=== PATIENT | male | born 1940 | race Caucasian/White ===

== ENCOUNTER 2018-11-11 09:10 | Inpatient (IN) | payer MEDICARE ==
[~2018-11-11] VITALS: Ht 175.3 cm; Wt 68.0 kg
--- OUTSIDE RECORDS SUMMARY | 2018-11-11 09:12 | XMS REPORT | Clinical Summary ---
Author Author ELIANE [facility] Address Unknown Phone Unavailable Care Team Providers Care Needle Punch Operator Name Role Phone Nicolas Baxter PCP Allergies Comments Active Allergy Reactions Severity Noted Date Iodine And Iodide Anaphylaxis High 02/24/2017 Containing Products Medications End Date Status Medication Sig Dispensed Refills Start Date Active finasteride (PROSCAR) 5 Take 5 mg by 0 mg tablet mouth daily. Active tamsulosin (FLOMAX) 0.4 Take 0.4 mg 0 mg Cp24 24 hr capsule by mouth daily. Active glipiZIDE (GLUCOTROL XL) Take 5 mg by 0 5 MG 24 hr tablet mouth daily. Active metFORMIN (GLUCOPHAGE) Take 500 mg 0 500 MG tablet by mouth daily with breakfast. Active losartan (COZAAR) 25 MG Take 25 mg by 0 tablet mouth daily. Active pantoprazole (PROTONIX) Take 40 mg by 0 40 MG tablet mouth daily. Active levocetirizine (XYZAL) 5 Take 5 mg by 0 MG tablet mouth every evening. Active aspirin 81 MG EC tablet Take 81 mg by 0 mouth daily. Active KRILL OIL ORAL Take by 0 mouth. Active TURMERIC ROOT EXTRACT Take by 0 ORAL mouth. Active VITB6/MAG Take by 0 CIT,OX/POTASSIUM CIT mouth. (THERALITH XR ORAL) Active ticagrelor (BRILINTA) 90 Take 1 tablet 180 tablet 0 mg Tab tablet (90 mg total) 7 by mouth 2 (two) times daily. 02/27/2018 rosuvastatin (CRESTOR) 20 Take 1 tablet 90 tablet 0 MG tablet (20 mg total) 7 by mouth daily. 02/26/2018 metoprolol (LOPRESSOR) 25 Take 1 tablet 69 tablet 0 MG tablet (25 mg total) 7 by mouth 2 (two) times daily. 02/26/2018 nitroglycerin (NITROSTAT) Put 1 pill 25 tablet 0 0.4 MG SL tablet under tongue 7 every 5min as needed for chest pain. Active Problems Problem Noted Date Type 2 diabetes mellitus 02/25/2017 Hyperlipidemia LDL goal <100 02/25/2017 Essential hypertension 02/25/2017 NSTEMI (non-ST elevated myocardial infarction) 02/24/2017 Social History Date Tobacco Use Types Packs/Day Years Used Never Smoker Smokeless Tobacco: Never Used Alcohol Use Drinks/Week oz/Week Comments No Sex Assigned at Date Recorded Not on file Industry Job Start Date Occupation Not on file Not on file Not on file Travel End Travel History Travel Start No recent travel history available. Last Filed Vital Signs Not on file Plan of Treatment Not on file Implants Device Identifier Shelf Expiration Date Model / Serial / Lot Implanted Type Area Manufactur er 11/24/2017 [id number] / [id number] / Device Clsr Angio-Seal Vip 6fr Cardiovasc N/A: Coronary [facility] YOBANI [id number] - [id number] MED:CARDIA Implanted: Qty: 1 on 02/25/2017 by Jem Medina MD [id number] 12/08/2017 [id number] / / [id number] Synergy Stents-Cor N/A: Coronary [place] Implanted: Qty: 1 on 02/25/2017 by Jem Felix MD Results Not on fileafter 11/10/2017 Insurance Payer Benefit Subscriber ID Type Phone Address Plan / Group HUMANA - MEDICARE MGD HUMANA xxxxxxxxx [facility] MEDICARE Contracted ADV Kevon Goldsmith Claude Personal/F Self 1940 [phone] ([address]) [place] [address] Advance Directives For more information, please contact: [facility] [address] [place] [address] Date Inactivated Comments Code Status Date Activated 02/26/2017 2:00 PM Full Code 02/24/2017 9:48 PM This code status was determined by: Patient
--- OUTSIDE RECORDS SUMMARY | 2018-11-11 09:12 | XMS REPORT | Clinical Summary ---
Author Author [facility] Address Unknown Phone Unavailable Care Team Providers Care Canvas Goods Maker Name Role Phone Asked, No Pcp PCP Unavailable Allergies Not on File Medications Not on file Active Problems Not on file Encounters Care Team Description Date Type Specialty Jorje Siddiqui MD Kidney stone 08/31/2018 Hospital Radiology Encounter Jorje Siddiqui MD Kidney stone (Primary Dx) 08/31/2018 Transcribe Access Orders after 11/10/2017 Social History Date Tobacco Use Types Packs/Day Years Used Never Assessed Sex Assigned at Date Recorded Not on file Industry Job Start Date Occupation Not on file Not on file Not on file Travel End Travel History Travel Start No recent travel history available. Last Filed Vital Signs Not on file Plan of Treatment Health Maintenance Due Date Last Done Comments SHINGLES VACCINES (#1) 1989 65+ PNEUMOCOCCAL VACCINE 2004 (1 of 2 - PCV13) INFLUENZA VACCINE 11/25/2018 Procedures Comments Procedure Name Priority Date/Time Associated Diagnosis XR KUB KIDNEY URETER Routine 08/31/2018 Kidney stone BLADDER 12:14 PM CDT after 11/10/2017 Results * XR Kub Kidney Ureter Bladder (08/31/2018 12:14 PM CDT) Specimen Narrative Performed At XR KUB KIDNEY URETER [facility] CLINICAL INDICATION:N20.0 Calculus of kidney, n20.0 COMPARISON:08/31/2017 IMPRESSION: There are advanced bilateral renal calculi with at least 10 calculi in each kidney that on the right measure to 6 mm, on the left 9 mm. Findings are similar in size and distribution to prior exam apart from a conglomeration of now 3 less than 5 mm calculi in the interpolar right kidney with a discrete 9 mm calculus in this region on prior. No ureteral calculi are identified. Multiple fluid is are noted through the pelvis with scattered atherosclerotic vascular calcifications. There is mild spondylosis at L4-5. 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 Bowel gas pattern is unremarkable. *[facility]-[id number] Procedure Note Hm Interface, Radiology Results Incoming - 08/31/2018 12:33 PM CDT XR KUB KIDNEY URETER BLADDER CLINICAL INDICATION: N20.0 Calculus of kidney, n20.0 COMPARISON: 08/31/2017 IMPRESSION: There are advanced bilateral renal calculi with at least 10 calculi in each kidney that on the right measure to 6 mm, on the left 9 mm. Findings are similar in size and distribution to prior exam apart from a conglomeration of now 3 less than 5 mm calculi in the interpolar right kidney with a discrete 9 mm calculus in this region on prior. No ureteral calculi are identified. Multiple fluid is are noted through the pelvis with scattered atherosclerotic vascular calcifications. There is mild spondylosis at L4-5. 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 Bowel gas pattern is unremarkable. *[facility]-[id number] Performing Organization Address City/State/Zipcode Phone Number [facility] [address] [place] [address] after 11/10/2017 Insurance Type Payer Benefit Subscriber ID Effective Phone Address Plan / Dates Group PPO HUMANA MEDICARE HUMANA xxxxxxxxx 2017-P MEDICARE resent PPO/PFFS/E [facility] Advance Directives Patient has advance care planning documents on file. For more information, beverley e contact: Alexander Vincent [address] [place] [address]
--- OUTSIDE RECORDS SUMMARY | 2018-11-11 09:13 | XMS REPORT ---
Author Author [facility] Address Unknown Phone Unavailable Care Team Providers Care Pipe Layer Name Role Phone ROBINJADENJADE Unavailable Unavailable Simón KIMBALL Unavailable Unavailable Payers Payer Name Policy Type Policy Number Effective Date Expiration Date Problems This patient has no known problems. Allergies, Adverse Reactions, Alerts This patient has no known allergies or adverse reactions. Medications This patient has no known medications. Results Test Description Test Time Test Comments Text Results Atomic Results Result Comments - MRI L-SPINE W/O CONT 2018-10-29 16:07:00 Patient Name: KANA FLANAGAN Unit No: [id number] EXAMS: CPT CODE: [id number] MRI L-SPINE W/O CONT 19904 TECHNIQUE: Multiplanar, multisequence MRI examination performed of the lumbar spine without intravenous contrast material. COMPARISON: None available. FINDINGS: Five lumbar type vertebra are assumed. Alignment: 1 retrolisthesis of L3-L4. Bone Lesion: No suspicious osseous lesion. Fracture: None present. Paraspinal Soft Tissues: Unremarkable. Conus Medullaris: Termination at L1 level. Morphology is normal. L1/2: Disc desiccation and minimal bulge. No significant foraminal or central canal stenosis. L2/3: Disc desiccation with small left asymmetric bulge. Bilateral facet hypertrophy contributes to mild central canal stenosis. No foraminal narrowing. L3/4: Grade 1 retrolisthesis. Right asymmetric disc bulge. Mild bilateral facet hypertrophy. Moderate central canal stenosis is noted as well as right lateral recess stenosis. There is mild bilateral foraminal narrowing. L4/5: Broad disc bulge is demonstrated as well as bilateral facet hypertrophy and ligamentum flavum thickening. There is moderate central canal stenosis as well as severe right lateral recess stenosis. Moderate left, severe right foraminal stenosis. L5/S1: Diffuse disc bulge. Bilateral facet hypertrophy and ligament of flavum thickening. There is marked right lateral recess stenosis as well as fgvt-df-ccomsyku central canal stenosis. Mild left, moderate right foraminal stenosis. IMPRESSION: Multilevel lumbar spondylosis with up to moderate central canal stenosis at L3-L4 and L4-L5. at 1607 Reported and signed by: Chun Liang M.D. CC: Technologist: DAGMAR MILTON. RT(R) Transcribed D/ (1116) Marianela [facility] NAME: KANA FLANAGAN [address] [place] [address] PHYS: WIMDA.Aliyah - Fabiola Mohamud Bossman : 1940 AGE: 78 SEX: M [place] [id number] LOC: Y.MRI PHONE #: [phone] EXAM DATE: 10/29/2018 STATUS: REG CLI FAX #: [phone] RAD #: D/C DT PAGE 1 Signed Report Patient Name: KANA FLANAGAN Unit No: [id number] EXAMS: CPT CODE: [id number] MRI L-SPINE W/O CONT 93131 <Continued> Orig Print D/T: S: 10/29/2018 (5985) [facility] NAME: KANA FLANAGAN [address] [place] [address] PHYS: WIMDA.Aliyah - WestbrookFabiola mosquera Bossman : 1940 AGE: 78 SEX: M [place] [id number] LOC: Y.MRI PHONE #: [phone] EXAM DATE: 10/29/2018 STATUS: REG CLI FAX #: [phone] RAD #: D/C DT PAGE 2 Signed Report - MRI C-SPINE W/O CONT 2018-10-29 15:41:00 Patient Name: KANA FLANAGAN Unit No: [id number] EXAMS: CPT CODE: [id number] MRI C-SPINE W/O CONT 02523 TECHNIQUE: Multiplanar, multisequence MRI examination performed of the cervical spine without intravenous contrast material. COMPARISON: None available. FINDINGS: Alignment: Grade 1 spondylolisthesis of C3-C4 and C4-C5. There is also grade 1 spondylolisthesis of C7-T1 Bone Lesion / Fracture: None present. Cervical Spinal Cord: No cord expansion or abnormal signal. 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 C2/3: Disc degeneration with small disc bulge. Severe left facet hypertrophy contributes to mild left foraminal narrowing. No significant right foraminal stenosis. There is mild central canal stenosis. C3/4: Grade 1 spondylolisthesis. Broad disc bulge osteophyte complex is present as well as marked bilateral uncovertebral hypertrophy and right-sided facet degeneration. There is severe central canal stenosis as well as moderate to severe left, severe right foraminal stenosis. C4/5: Grade 1 spondylolisthesis. Broad disc bulge osteophyte complex is present as well as severe bilateral uncovertebral hypertrophy and right- sided facet degeneration. There is severe central canal stenosis as well as severe bilateral foraminal narrowing. C5/6: Disc degeneration with endplate marrow changes and broad disc bulge osteophyte complex. Marked bilateral uncovertebral hypertrophy and right-sided facet degeneration. There is severe central canal stenosis as well as severe bilateral foraminal narrowing. C6/7: Marked disc degeneration is present with endplate marrow changes and broad disc bulge osteophyte complex. Left greater than right and uncovertebral hypertrophy is noted as well as mild facet degeneration. There is severe left, moderate right foraminal stenosis as well as severe central canal stenosis. C7/T1: Grade 1 spondylolisthesis. Right asymmetric disc bulge. Marked bilateral facet hypertrophy is present. There is mild central canal stenosis as well as mild bilateral foraminal narrowing. IMPRESSI ON: 1. Advanced multilevel cervical spondylosis with severe central canal stenosis from C3-C4 to C6-C7. 2. Fluid and gas- filled sac anterior to the T1 vertebral body which is most likely a Zenker's diverticulum. Consider confirmation with fluoroscopy if clinically indicated. [facility] NAME: KANA FLANAGAN [address] [facility] PHYS: АНДРЕЙA.Aliyah - Fabiola Mohamud : 1940 AGE: 78 SEX: M [place] [id number] ACCT NO: Y [id number] LOC: Y.MRI PHONE #: [phone] EXAM DATE: 10/29/2018 STATUS: REG CLI FAX #: [phone] RAD #: D/C DT PAGE 1 Signed Report (CONTINUED) Patient Name: KANA FLANAGAN Unit No: [id number] EXAMS: CPT CODE: [id number] MRI C-SPINE W/O CONT 54660 <Continued> at 1541 Reported and signed by: Chun Liang M.D. CC: Technologist: DAGMAR MILTON. RT(R) Transcribed D/ (1053) Marianela [facility] NAME: KANA FLANAGAN Aliyah [facility] PHYS: WIMDA.Aliyah - Fabiola Mohamud : 1940 AGE: 78 SEX: [place] [address] LOC: Y.MRI PHONE #: [phone] EXAM DATE: 10/29/2018 STATUS: REG CLI FAX #: RAD #: D/C DT PAGE 2 Signed Report Patient Name: KANA FLANAGAN Unit No: [id number] EXAMS: CPT CODE: [id number] MRI C-SPINE W/O CONT 09795 <Continued> Orig Print D/T: S: 10/29/2018 (8310) [facility] NAME: KANA FLANAGAN [address] [place] [address] PHYS: WIMDA.Aliyah - Fabiola Mohamud : 1940 AGE: 78 SEX: M [place] [id number] LOC: Y.MRI PHONE #: [phone] EXAM DATE: 10/29/2018 STATUS: REG CLI FAX #: [phone] RAD #: D/C DT PAGE 3 Signed Report BLAKE CARLOS FLUORO 2017-04-03 08:47:00 Reason for Exam:->I72.8 Addendum BeginsREPORT STATUS:A Addendum:Ultrasound was used to assess the right common femoral artery which was patent and access the right common femoral artery using a 21-gauge micropuncture needle. An image documenting the needle tip within the artery was saved to PACS. Signed: Chun Weiss Verified Date/Time: 04/03/2017 08:47:42 Reading Location: [facility] Radiology Reading RoomAddendum EndsFINAL REPORT Right lower extremity angiogram History: Concern for right femoral pseudoaneurysm status post cardiac catheterization. Modality: Fluoroscopy. Sedation: None Web Merchant: Loree. Orthotic/Prosthetic Practitioner: Anthony. Approach: Right inguinal region. Estimated blood loss: < 10 cc. Specimen: None. Fluoroscopy Time: 0.1 min.Reference Air Kerma (Ka, r): 150.9 mGy. Technique: Informed written consent was obtained. Discussion of risks, benefits, and alternatives were made with the patient. The patient expressed understanding and agreed to proceed. All elements maximal sterile barrier technique was utilized for this procedure, including utilization of sterile scrub solution for skin prep, a la rge sterile sheet to cover the areas of the patient that were not prepped, and hand hygiene, mask, head covering, and sterile gown for performing radiologist and scrub technologist. Ultrasound evaluation was performed demonstrating a large hematoma but no pseudoaneurysm could be identified.. Ultrasound guidance was used to percutaneously access right common femoral artery using a 21-gauge micropuncture needle, 0.018 inches wire, and micropuncture sheath. Contrast was injected through the micropuncture 4 Japanese sheath for a DSA run to evaluate the right femoral artery. No pseudoaneurysm or contrast extravasation from the artery was identified. IMPRESSION: Right inguinal hematoma without evidence of pseudoaneurysm. Signed: Chun Weiss MDRjanisort Verified Date/Time: 03/10/2017 08:17:34 Reading Location: [facility] P048 Angio Body Reading Room ELET AGGREGATION: FUNCTION SCREEN 2017-02-27 14:11:00 WEAK ADP RESULT(BEAKER) (test ondz=9571) 31 % 60-91 PLATELET FUNCTION SCREEN INTERP (BEAKER) (test wfxr=5403) 0-39% indicates marked platelet dysfunction [id number] (BEAKER) (test date=6094) Martínez De Leon M.D. (electonic signature) PLATELET COUNT AGG (BEAKER) (test upzk=9087) 234 K/CU MM 150-450 POCT-GLUCOSE [id number] 09:07:00* Test Item Value Reference Range Comments POC-GLUCOSE METER (BEAKER) (test alms=4072) 279 mg/dL 70-110 TESTED AT [facility] [address] [facility] [address] CREATINE KINASE (CK), TOTAL AND [id number] 06:36:00* Test Item Value Reference Range Comments CREATINE KINASE TOTAL (BEAKER) (test ylpx=541) 146 U/L 29-200 CREATINE KINASE-MB (BEAKER) (test msuu=839) 10.3 ng/mL 0.0-6.6 CREATINE KINASE-MB INDEX (BEAKER) (test xmke=957) 7.1 % CK-MB Reference Range:<6.7 Normal6.7-10.0 Borderline>10.0 Abnormal BASIC METABOLIC [id number] 06:29:00* Test Item Value Reference Range Comments SODIUM (BEAKER) (test eoqh=272) 140 meq/L 136-145 POTASSIUM (BEAKER) (test rbve=512) 4.7 meq/L 3.5-5.1 CHLORIDE (BEAKER) (test wdbi=462) 112 meq/L 98-107 CO2 (BEAKER) (test bopg=054) 22 meq/L 22-29 BLOOD UREA NITROGEN (BEAKER) (test soll=404) 21 mg/dL 7-21 CREATININE (BEAKER) (test lzma=035) 0.81 mg/dL 0.57-1.25 GLUCOSE RANDOM (BEAKER) (test bwfs=047) 194 mg/dL 70-105 CALCIUM (BEAKER) (test aalj=112) 8.6 mg/dL 8.4-10.2 EGFR (BEAKER) (test jwac=0979) 92 mL/min/1.73 sq m ESTIMATED GFR IS NOT ACCURATE CREATININE CLEARANCE IN PREDICTING GLOMERULAR FILTRATION RATE. ESTIMATED GFR IS NOT APPLICABLE FOR DIALYSIS PATIENTS. CBC (HEMOGRAM ONLY)2017-02-26 05:56:00* Test Item Value Reference Range Comments WHITE BLOOD CELL COUNT (BEAKER) (test dqaq=180) 12.4 K/ L 3.5-10.5 RED BLOOD CELL COUNT (BEAKER) (test roza=898) 3.97 M/ L 4.63-6.08 HEMOGLOBIN (BEAKER) (test kald=046) 12.3 GM/DL 13.7-17.5 HEMATOCRIT (BEAKER) (test pfvk=313) 36.3 % 40.1-51.0 MEAN CORPUSCULAR VOLUME (BEAKER) (test iovs=884) 91.4 fL 79.0-92.2 MEAN CORPUSCULAR HEMOGLOBIN (BEAKER) (test ipol=456) 31.0 pg 25.7-32.2 MEAN CORPUSCULAR HEMOGLOBIN CONC (BEAKER) (test bkou=722) 33.9 GM/DL 32.3-36.5 RED CELL DISTRIBUTION WIDTH (BEAKER) (test kgnq=882) 13.2 % 11.6-14.4 PLATELET COUNT (BEAKER) (test cljw=923) 211 K/CU MM 150-450 MEAN PLATELET VOLUME (BEAKER) (test zczo=500) 9.9 fL 9.4-12.4 NUCLEATED RED BLOOD CELLS (BEAKER) (test odah=286) 0 /100 WBC 0-0 POCT-GLUCOSE [id number] 22:01:00* Test Item Value Reference Range Comments POC-GLUCOSE METER (BEAKER) (test plhr=6236) 240 mg/dL 70-110 TESTED AT [address] [address] POCT-GLUCOSE [id number] 17:59:00* Test Item Value Reference Range Comments POC-GLUCOSE METER (BEAKER) (test vvxd=2161) 250 mg/dL 70-110 TESTED AT [address] [address] POCT-GLUCOSE [id number] 14:50:00* Test Item Value Reference Range Comments POC-GLUCOSE METER (BEAKER) (test hren=7833) 259 mg/dL 70-110 TESTED AT [address] [address] [id number] 13:08:00* Test Item Value Reference Range Comments ACTIVATED CLOTTING TIME (BEAKER) (test bhdu=994) 213 sec TESTED AT [address] [address] HEMOGLOBIN [id number] 12:59:00* Test Item Value Reference Range Comments HEMOGLOBIN A1C (BEAKER) (test cebq=755) 7.0 % 4.3-6.1 [id number] 11:21:00* Test Item Value Reference Range Comments ACTIVATED CLOTTING TIME (LAURA) (test ehly=463) 263 sec TESTED AT [address] [address] TROPONIN [id number] 10:31:00* Test Item Value Reference Range Comments TROPONIN I (LAURA) (test uhbh=813) 6.39 ng/mL 0.00-0.03 Troponin I (TnI) levels must be interpreted in the context of the presenting sym ptoms and the clinical findings. Elevated TnI levels indicate myocardial damage, but are not specific for ischemic heart disease. Elevated TnI levels are seen in patients with other cardiac conditions (including myocarditis and congestive h eart failure), and slight TnI elevations occur in patients with other conditions , including sepsis, renal failure, acidosis, acute neurological disease, and per sistent tachyarrhythmia.CREATINE KINASE (CK), TOTAL AND [id number] 10:08:00* Test Item Value Reference Range Comments CREATINE KINASE TOTAL (LAURA) (test izgl=335) 310 U/L 29-200 CREATINE KINASE-MB (LAURA) (test hakt=793) 27.3 ng/mL 0.0-6.6 CREATINE KINASE-MB INDEX (LAURA) (test tfun=697) 8.8 % CK-MB Reference Range:<6.7 Normal6.7-10.0 Borderline>10.0 Abnormal POCT-GLUCOSE [id number] 08:16:00* Test Item Value Reference Range Comments POC-GLUCOSE METER (LAURA) (test afda=7016) 168 mg/dL 70-110 TESTED AT [address] [address] TROPONIN [id number] 05:15:00* Test Item Value Reference Range Comments TROPONIN I (LETIAKER) (test zubr=784) 6.67 ng/mL 0.00-0.03 Troponin I (TnI) levels must be interpreted in the context of the presenting sym ptoms and the clinical findings. Elevated TnI levels indicate myocardial damage, but are not specific for ischemic heart disease. Elevated TnI levels are seen in patients with other cardiac conditions (including myocarditis and congestive h eart failure), and slight TnI elevations occur in patients with other conditions , including sepsis, renal failure, acidosis, acute neurological disease, and per sistent tachyarrhythmia.[id number] 05:13:00* Test Item Value Reference Range Comments PARTIAL THROMBOPLASTIN TIME (BEAKER) (test dzoa=620) 53.2 seconds 22.5-36.0 CREATINE KINASE (CK), TOTAL AND [id number] 05:11:00* Test Item Value Reference Range Comments CREATINE KINASE TOTAL (BEAKER) (test uhnk=981) 352 U/L 29-200 CREATINE KINASE-MB (BEAKER) (test xqpz=817) 29.9 ng/mL 0.0-6.6 CREATINE KINASE-MB INDEX (BEAKER) (test tqci=744) 8.5 % CK-MB Reference Range:<6.7 Normal6.7-10.0 Borderline>10.0 Abnormal [id number] 05:04:00* Test Item Value Reference Range Comments MAGNESIUM (BEAKER) (test yaqm=920) 2.0 mg/dL 1.6-2.6 Specimen slightly hemolyzed BASIC METABOLIC [id number] 05:04:00* Test Item Value Reference Range Comments SODIUM (BEAKER) (test jqnt=683) 138 meq/L 136-145 POTASSIUM (BEAKER) (test ozor=187) 4.9 meq/L 3.5-5.1 Specimen slightly hemolyzed CHLORIDE (BEAKER) (test mioz=814) 109 meq/L 98-107 CO2 (BEAKER) (test rofq=258) 20 meq/L 22-29 BLOOD UREA NITROGEN (BEAKER) (test cfci=777) 25 mg/dL 7-21 CREATININE (BEAKER) (test nxug=304) 1.15 mg/dL 0.57-1.25 Specimen slightly hemolyzed GLUCOSE RANDOM (BEAKER) (test aqcc=282) 263 mg/dL 70-105 CALCIUM (BEAKER) (test bmka=009) 9.0 mg/dL 8.4-10.2 EGFR (BEAKER) (test pmli=6745) 62 mL/min/1.73 sq m ESTIMATED GFR IS NOT ACCURATE CREATININE CLEARANCE IN PREDICTING GLOMERULAR FILTRATION RATE. ESTIMATED GFR IS NOT APPLICABLE FOR DIALYSIS PATIENTS. CBC W/PLT COUNT & AUTO [id number] 04:55:00* Test Item Value Reference Range Comments WHITE BLOOD CELL COUNT (BEAKER) (test daec=623) 9.0 K/ L 3.5-10.5 RED BLOOD CELL COUNT (BEAKER) (test tjuu=126) 4.46 M/ L 4.63-6.08 HEMOGLOBIN (BEAKER) (test zhrv=308) 13.9 GM/DL 13.7-17.5 HEMATOCRIT (BEAKER) (test obkq=932) 40.1 % 40.1-51.0 MEAN CORPUSCULAR VOLUME (BEAKER) (test ypuo=897) 89.9 fL 79.0-92.2 MEAN CORPUSCULAR HEMOGLOBIN (BEAKER) (test umtb=417) 31.2 pg 25.7-32.2 MEAN CORPUSCULAR HEMOGLOBIN CONC (BEAKER) (test bslx=762) 34.7 GM/DL 32.3-36.5 RED CELL DISTRIBUTION WIDTH (BEAKER) (test kzjf=333) 12.9 % 11.6-14.4 PLATELET COUNT (BEAKER) (test iaqd=230) 214 K/CU MM 150-450 MEAN PLATELET VOLUME (BEAKER) (test yijy=849) 9.8 fL 9.4-12.4 NUCLEATED RED BLOOD CELLS (BEAKER) (test mmjn=888) 0 /100 WBC 0-0 NEUTROPHILS RELATIVE PERCENT (BEAKER) (test voul=908) 93 % LYMPHOCYTES RELATIVE PERCENT (BEAKER) (test rkvv=729) 5 % MONOCYTES RELATIVE PERCENT (BEAKER) (test bzoi=819) 2 % EOSINOPHILS RELATIVE PERCENT (BEAKER) (test pdrf=535) 0 % BASOPHILS RELATIVE PERCENT (BEAKER) (test jfyv=413) 0 % NEUTROPHILS ABSOLUTE COUNT (BEAKER) (test soek=639) 8.33 K/ L 1.78-5.38 LYMPHOCYTES ABSOLUTE COUNT (BEAKER) (test gewf=599) 0.40 K/ L 1.32-3.57 MONOCYTES ABSOLUTE COUNT (BEAKER) (test frjw=838) 0.17 K/ L 0.30-0.82 EOSINOPHILS ABSOLUTE COUNT (BEAKER) (test tuus=651) 0.00 K/ L 0.04-0.54 BASOPHILS ABSOLUTE COUNT (BEAKER) (test qqif=011) 0.01 K/ L 0.01-0.08 IMMATURE GRANULOCYTES-RELATIVE PERCENT (BEAKER) (test boke=7835) 0 % 0-1 RAPID DRUG SCREEN, [id number] 23:26:00* Test Item Value Reference Range Comments BARBITURATE URINE (BEAKER) (test hlrs=439) Negative Negative BENZODIAZEPINE SCREEN URINE (BEAKER) (test birs=661) Negative Negative COCAINE (METAB.) SCREEN (BEAKER) (test noyh=3966) Negative Negative METHADONE SCREEN (BEAKER) (test sfre=2134) Negative Negative OPIATE SCREEN URINE (BEAKER) (test ztrr=701) Negative Negative CANNABINOID SCREEN URINE (BEAKER) (test zcvv=389) Negative Negative AMPH/METHAMPH SCREEN (BEAKER) (test wzzy=3360) Negative Negative PHENCYCLIDINE SCREEN URINE (BEAKER) (test uacu=412) Negative Negative OXYCODONE SCREEN URINE (BEAKER) (test mtpx=2429) Negative Negative DRUG CUTOFF CONC.Cocaine 300 ng/mL Cannabinoid 50 ng/mL Benzodiazepine 200 ng/mLBarbiturate 200 ng/mLPh encyclidine 25 ng/mLOpiate 300 ng/mLMethadone 300 ng/mLAmphetamine/ 1000 ng/mL MethamphetamineOxycodone 300 ng/mLThis assay provides an unconfirmed qualitative test result for the cli nical management of patients in emergency situations. Chain of custody not maint ained. Some wnfs-dzd-xfwjgxr medications, as well as adulterants, may cause inac curate results. Clinical correlation should be applied. A more comprehensive reece g screen or confirmation of a detected drug may be performed upon request. URINALYSIS W/ [id number] 23:06:00* Test Item Value Reference Range Comments COLOR (BEAKER) (test hxkn=397) Yellow CLARITY (BEAKER) (test vavm=240) Clear SPECIFIC GRAVITY UA (BEAKER) (test pndg=734) 1.021 1.001-1.035 PH UA (BEAKER) (test npck=141) 6.0 5.0-8.0 PROTEIN UA (BEAKER) (test bgor=061) 20 mg/dL Negative GLUCOSE UA (BEAKER) (test ixra=229) 500 mg/dL Negative KETONES UA (BEAKER) (test vugi=730) 40 mg/dL Negative BILIRUBIN UA (BEAKER) (test dyav=851) Negative Negative BLOOD UA (BEAKER) (test ouje=524) Negative Negative NITRITE UA (BEAKER) (test otsq=482) Negative Negative LEUKOCYTE ESTERASE UA (BEAKER) (test onxt=979) Negative Negative UROBILINOGEN UA (BEAKER) (test klqs=959) 0.2 mg/dL 0.2-1.0 RBC UA (BEAKER) (test kxpt=300) < /HPF WBC UA (BEAKER) (test feub=156) 2 /HPF MUCUS (BEAKER) (test crep=8692) Rare SQUAMOUS EPITHELIAL (BEAKER) (test aitv=738) < /HPF CRYSTALS, URINE (BEAKER) (test ycur=8967) Rare SOURCE(BEAKER) (test giaf=4504) Urine, Voided TROPONIN [id number] 23:06:00* Test Item Value Reference Range Comments TROPONIN I (BEAKER) (test rhzz=256) 5.66 ng/mL 0.00-0.03 Troponin I (TnI) levels must be interpreted in the context of the presenting sym ptoms and the clinical findings. Elevated TnI levels indicate myocardial damage, but are not specific for ischemic heart disease. Elevated TnI levels are seen in patients with other cardiac conditions (including myocarditis and congestive h eart failure), and slight TnI elevations occur in patients with other conditions , including sepsis, renal failure, acidosis, acute neurological disease, and per sistent tachyarrhythmia.B-TYPE NATRIURETIC FACTOR (BNP)2017-02-24 23:04:00* Test Item Value Reference Range Comments B-TYPE NATRIURETIC PEPTIDE (BEAKER) (test dfyf=166) 199 pg/mL 0-100 CREATINE KINASE (CK), TOTAL AND [id number] 23:04:00* Test Item Value Reference Range Comments CREATINE KINASE TOTAL (BEAKER) (test dmss=165) 388 U/L 29-200 CREATINE KINASE-MB (BEAKER) (test ubep=376) 31.4 ng/mL 0.0-6.6 CREATINE KINASE-MB INDEX (BEAKER) (test jmik=513) 8.1 % CK-MB Reference Range:<6.7 Normal6.7-10.0 Borderline>10.0 Abnormal [id number] 22:58:00* Test Item Value Reference Range Comments MAGNESIUM (BEAKER) (test hpmh=347) 2.1 mg/dL 1.6-2.6 Specimen slightly hemolyzed [id number] 22:58:00* Test Item Value Reference Range Comments PHOSPHORUS (BEAKER) (test shwh=855) 1.8 mg/dL 2.3-4.7 Specimen slightly hemolyzed COMPREHENSIVE METABOLIC [id number] 22:58:00* Test Item Value Reference Range Comments TOTAL PROTEIN (BEAKER) (test yrks=576) 7.1 gm/dL 6.0-8.3 Specimen slightly hemolyzed ALBUMIN (BEAKER) (test jpwr=3427) 3.9 g/dL 3.5-5.0 Specimen slightly hemolyzed ALKALINE PHOSPHATASE (BEAKER) (test jvvo=698) 53 U/L 40-150 BILIRUBIN TOTAL (BEAKER) (test yorz=321) 0.6 mg/dL 0.2-1.2 Specimen slightly hemolyzed SODIUM (BEAKER) (test sxaq=354) 137 meq/L 136-145 POTASSIUM (BEAKER) (test nufg=916) 4.8 meq/L 3.5-5.1 Specimen slightly hemolyzed CHLORIDE (BEAKER) (test dnen=113) 107 meq/L 98-107 CO2 (BEAKER) (test orll=982) 20 meq/L 22-29 BLOOD UREA NITROGEN (BEAKER) (test xvtm=137) 22 mg/dL 7-21 CREATININE (BEAKER) (test ryua=463) 0.97 mg/dL 0.57-1.25 Specimen slightly hemolyzed GLUCOSE RANDOM (BEAKER) (test mxqt=405) 231 mg/dL 70-105 CALCIUM (BEAKER) (test wlaf=702) 9.3 mg/dL 8.4-10.2 AST (SGOT) (BEAKER) (test fria=866) 44 U/L 5-34 Specimen slightly hemolyzed ALT (SGPT) (BEAKER) (test qyew=051) 16 U/L 6-55 Specimen slightly hemolyzed EGFR (BEAKER) (test weew=9399) 75 mL/min/1.73 sq m ESTIMATED GFR IS NOT ACCURATE CREATININE CLEARANCE IN PREDICTING GLOMERULAR FILTRATION RATE. ESTIMATED GFR IS NOT APPLICABLE FOR DIALYSIS PATIENTS. LIPID [id number] 22:58:00* Test Item Value Reference Range Comments TRIGLYCERIDES (BEAKER) (test qcsf=162) 82 mg/dL Specimen slightly hemolyzed CHOLESTEROL (BEAKER) (test fdzk=164) 237 mg/dL Specimen slightly hemolyzed HDL CHOLESTEROL (BEAKER) (test gzxy=992) 46 mg/dL LDL CHOLESTEROL CALCULATED (BEAKER) (test hbzd=800) 175 mg/dL Triglyceride Reference Range: Low Risk <150 Borderline 150-199 High Risk 200-499 Very High Risk >=500Cholesterol Reference Range: Low Risk <200 Borderline 200-239 High Risk >240HDL Cholesterol Reference Range: Low Risk >=60 High Risk <40LDL Cholesterol Reference Range: Optimal <100 Near Optimal 100-129 Borderline 130-159 High 160-189 Very High >=190 APTT 2017-02-24 22:54:00* Test Item Value Reference Range Comments PARTIAL THROMBOPLASTIN TIME (BEAKER) (test xpgb=398) 31.9 seconds 22.5-36.0 PROTHROMBIN TIME/[id number] 22:53:00* Test Item Value Reference Range Comments PROTIME (BEAKER) (test iaiv=434) 14.2 seconds 11.7-14.7 INR (BEAKER) (test uyet=285) 1.1 <=5.9 RECOMMENDED COUMADIN/WARFARIN INR THERAPY RANGESSTANDARD DOSE: 2.0 - 3.0 Inclu brian: PROPHYLAXIS for venous thrombosis, systemic embolization; TREATMENT for edith ous thrombosis and/or pulmonary embolus.HIGH RISK: Target INR is 2.5-3.5 for pat ients with mechanical heart valves.CBC W/PLT COUNT & AUTO [id number] 22:48:00* Test Item Value Reference Range Comments WHITE BLOOD CELL COUNT (BEAKER) (test dvbn=527) 10.0 K/ L 3.5-10.5 RED BLOOD CELL COUNT (BEAKER) (test skho=798) 4.70 M/ L 4.63-6.08 HEMOGLOBIN (BEAKER) (test qmyw=223) 14.6 GM/DL 13.7-17.5 HEMATOCRIT (BEAKER) (test azsy=317) 42.0 % 40.1-51.0 MEAN CORPUSCULAR VOLUME (BEAKER) (test mrsn=160) 89.4 fL 79.0-92.2 MEAN CORPUSCULAR HEMOGLOBIN (BEAKER) (test shcx=259) 31.1 pg 25.7-32.2 MEAN CORPUSCULAR HEMOGLOBIN CONC (BEAKER) (test piai=169) 34.8 GM/DL 32.3-36.5 RED CELL DISTRIBUTION WIDTH (BEAKER) (test xktt=678) 12.9 % 11.6-14.4 PLATELET COUNT (BEAKER) (test lqbt=201) 231 K/CU MM 150-450 MEAN PLATELET VOLUME (BEAKER) (test kgyv=832) 9.9 fL 9.4-12.4 NUCLEATED RED BLOOD CELLS (BEAKER) (test spbp=068) 0 /100 WBC 0-0 NEUTROPHILS RELATIVE PERCENT (BEAKER) (test pwgh=169) 95 % LYMPHOCYTES RELATIVE PERCENT (BEAKER) (test kteq=893) 4 % MONOCYTES RELATIVE PERCENT (BEAKER) (test iocu=129) 1 % EOSINOPHILS RELATIVE PERCENT (BEAKER) (test dbaq=862) 0 % BASOPHILS RELATIVE PERCENT (BEAKER) (test qmuf=595) 0 % NEUTROPHILS ABSOLUTE COUNT (BEAKER) (test zkrn=502) 9.50 K/ L 1.78-5.38 LYMPHOCYTES ABSOLUTE COUNT (BEAKER) (test gloj=167) 0.35 K/ L 1.32-3.57 MONOCYTES ABSOLUTE COUNT (BEAKER) (test mtyd=643) 0.09 K/ L 0.30-0.82 EOSINOPHILS ABSOLUTE COUNT (BEAKER) (test ijfp=746) 0.00 K/ L 0.04-0.54 BASOPHILS ABSOLUTE COUNT (BEAKER) (test vnow=111) 0.03 K/ L 0.01-0.08 IMMATURE GRANULOCYTES-RELATIVE PERCENT (BEAKER) (test jdwo=0504) 0 % 0-1 POCT-GLUCOSE [id number] 22:43:00* Test Item Value Reference Range Comments POC-GLUCOSE METER (BEAKER) (test xqdo=9850) 215 mg/dL 70-110 TESTED AT [place] [id number] [facility] [address] RAD, CHEST, 1 VIEW, NON [id number] 22:29:00Reason for exam:->chest painShould this be performed at the bedside?->YesFINAL REPORT Comparison examination: None No pneumothorax, focal pulmonary consolidation, or significant pleural effusion. Normal cardiomediastinal contours. Normal skeleton and soft tissues. Impression: No acute abnormality. Signed: Gre Vergara MDReport Verified Date/Time: 02/24/2017 22:29:01 Reading Location: [facility] B1 C013X Ortho Consult Reading Room T SINGLE (PORTABLE) [place] [address] Patient Name: KANA FLANAGAN MR #: [id number] : 1940 Age/Sex: 76/M Req #: [id number] Adm Physician: Ordered by: CHANDA KIMBALL MD Report #: [id number] Location: ER Room/Bed: Procedure: [id number] DX/CHEST SINGLE (PORTABLE) Exam Date: 02/24/17 Exam Time: 1230 REPORT STA TUS: Signed PROCEDURE: A single AP view of the chest. COMPARISON: Non e. INDICATIONS: CHEST PAIN FINDINGS: Lines/tubes: None. Lungs: The lungs are well inflated and clear. There is no evidence of pne umonia or pulmonary edema. Pleura: There is no pleural effusion or pneumo thorax. Heart and mediastinum: The heart and the mediastinum are unremark able. Bones: Questionable age indeterminant nondisplaced fracture of the posterolateral right fifth rib. fracture IMPRESSION: 1. No acute cardiopulmonary disease. 2. Questionable age indeterminant nondisplaced frac ture of the posterolateral right fifth rib. Please correlate clinically for p oint tenderness. Dictated by: Damian Salas M.D. on 02/24/2017 at 12: 52 Electronically approved by: Damian Salas M.D. on 02/24/2017 at 12:5 2 Dictated By: DAMIAN SALAS MD 1252 Transcribed By: JUS on 02/24/17 1252 SERVICE CENTER MANAGER Y TO: CHANDA KIMBALL MD CT BRAIN WO [place] [address] Patient Name: KANA FLANAGAN MR #: [id number] : 1940 Age/Sex: 76/M Req #: [id number] Adm Physician: Ordered by: CHANDA KIMBALL MD Report #: [id number] Location: ER Room/Bed: Procedure: [id number] CT/CT BRAIN WO Exam Date: 02/24/17 Exam Time: 1230 REPORT STATUS: Signed Exam: Head CT without contrast History: Left arm numbness, history of TIA. Comparison studies: None Technique: Axial images were obtained from the skull base to the vertex. Coronal and sagittal images reconstructed from the axial data. Intravenous contrast: None Findings: Scalp: No abnorma lities. Bones: No fractures, blastic or lytic lesions. Brain sulci: Mildl y prominent but age appropriate. Ventricles: Mild compensatory dilatation. No hydrocephalus. Extra-axial spaces: No masses, no fluid collection. Paren chyma: No mass, acute hemorrhage or acute cortical vascular insults. Asymmetr ic hypodensity in the deep posterior right frontal white matter is age-indet erminate by CT. There is asymmetric compensatory dilatation of the adjacent melanie dy of the right lateral ventricle which would favor insult to be chronic, more over, cannot exclude acute on chronic ischemia in this patient with focal left -sided neurologic symptoms. A few scattered and mildly confluent hypodensi ties in the supratentorial white matter are nonspecific but most compatible wi th chronic small vessel ischemic changes. Slightly greater confluent ischemic changes in the posterior right frontal white matter. Small chronic lacunar inf arct in the right thalamus. Sellar/suprasellar region: No abnormalities. Craniocervical junction: Patent foramen magnum. No Chiari one malformation. Incidental findings: Atherosclerotic calcifications in the carotid siphons. Small right maxillary sinus polyp or retention cyst. Bilateral lens replace ments related to previous cataract surgery. IMPRESSION: Age-indetermi rena, nonhemorrhagic posterior right frontal subcortical insult. No mass, acut e hemorrhage or acute cortical vascular insults. Chronic findings: 1. Mi ld age-related generalized volume loss. 2. Small right thalamic lacunar infar ct. 3. Mildly confluent supratentorial microvascular ischemic changes. B rain MRI could further evaluate if there is persistent concern for acute on ch ronic ischemia. Signed by: Dr. Fabiola Wright M.D. on 02/24/2017 12:57 PM Dictated By: FABIOLA WRIGHT MD 1257 Transcribed By: ADRIAN on 02/24/17 1257 COPY TO: CHANDA KIMBALL MD
[2018-11-11] MEDS ORDERED: CEFEPIME HCL 2 GM VIAL IV ONE (09:30)
[2018-11-11] MEDS ORDERED: GLIPIZIDE5 MG PO (09:42)
[2018-11-11] MEDS ORDERED: PANTOPRAZOLE SO40 MG PO (09:42)
[2018-11-11] MEDS ORDERED: LOSARTAN POTAS100 MG PO (09:42)
[2018-11-11] MEDS ORDERED: VYTORIN 10-401 EACH PO (09:42)
[2018-11-11] MEDS ORDERED: FINASTERIDE5 MG PO (09:42)
[2018-11-11] MEDS ORDERED: ASPIRIN EC81 MG PO (09:42)
[2018-11-11] MEDS ORDERED: TAMSULOSIN PO (09:42)
[2018-11-11] MEDS ORDERED: CLOPIDOGREL75 MG PO (09:42)
[2018-11-11] MEDS ORDERED: NITROGLYCERIN0.4 MG SL (09:42)
[2018-11-11] MEDS ORDERED: METFORMIN HCL500 MG PO (09:42)
[2018-11-11] MEDS ORDERED: METOPROLOL TART25 MG PO (09:42)
[2018-11-11] MEDS ORDERED: ONDANSETRON HCL INJ 2MG/ML 2ML 2 MG/ML VIAL IV ONE (10:00)
[2018-11-11] MEDS ORDERED: FAMOTIDINE 20 MG/2 ML VIAL IV ONE (10:00)
[2018-11-11] MEDS ORDERED: CEFEPIME 2 GM/NS 0.9% 100 ML 100 ML IV ONE (10:00)
[2018-11-11 10:09] LABS: BASOPHILS # (AUTO) 0.1 (0.0-0.1); BASOPHILS % 0.6 % (0.0-1.0); EOSINOPHILS # (AUTO) 0.2 (0.0-0.4); EOSINOPHILS % 2.3 % (0.0-6.0); HEMATOCRIT 42.4 % (38.2-49.6); HEMOGLOBIN 14.6 g/dL (14.0-18.0); LYMPHOCYTES % 13.5 % (18.0-39.1); MEAN CORPUSCULAR HEMOGLOBIN 31.3 pg (28-32); MEAN CORPUSCULAR HGB CONC 34.4 g/dL (31-35); MEAN CORPUSCULAR VOLUME 90.8 fL (81-99); MONOCYTES # (AUTO) 0.6 (0.2-0.8); MONOCYTES % 8.3 % (4.4-11.3); NEUTROPHILS # (AUTO) 5.7 (2.1-6.9); NEUTROPHILS % 74.3 % (38.7-80.0); PLATELET COUNT 195 x10e3/uL (140-360); RED BLOOD COUNT 4.67 x10e6/uL (4.3-5.7); RED CELL DISTRIBUTION WIDTH 12.7 % (11.7-14.4)
[2018-11-11 10:14] LABS: ALANINE AMINOTRANSFERASE 15 IU/L (0-55); ALBUMIN 3.8 g/dL (3.5-5.0); ALBUMIN/GLOBULIN RATIO 1.2 (0.8-2.0); ALKALINE PHOSPHATASE 43 IU/L (40-150); ANION GAP 13.4 mmol/L (8-16); BLOOD UREA NITROGEN 16 mg/dL (7-26); BUN/CREATININE RATIO 18 (6-25); CALCIUM 9.8 mg/dL (8.4-10.2); CARBON DIOXIDE 25 mmol/L (22-29); CHLORIDE 105 mmol/L (98-107); CREATINE KINASE 219 IU/L (30-200); EST GLOMERULAR FILTRATION RATE > 60 ML/MIN (60-); GLUCOSE 148 mg/dL (74-118); POTASSIUM 4.4 mmol/L (3.5-5.1); SODIUM 139 mmol/L (136-145)
--- NOTE | 2018-11-11 10:15 | Diagnostic Imaging Report ---
EXAMINATION: CHEST 2 VIEWS INDICATION: Cough COMPARISON: None FINDINGS: TUBES and LINES: None. LUNGS: The lungs are hyperinflated. Bilateral upper lobe predominant emphysematous changes. Patchy opacity at the left lung base. PLEURA: No pleural effusion or pneumothorax. HEART AND MEDIASTINUM: The cardiomediastinal silhouette is normal in size and contour. BONES AND SOFT TISSUES: Old fracture of the right sixth posterolateral rib. No acute fracture. Moderate degenerative changes of the visualized thoracic spine. UPPER ABDOMEN: No free air under the diaphragm. IMPRESSION: Patchy opacities at the left lung base may represent early pneumonia in the proper clinical setting. RECOMMENDATIONS: Follow-up chest radiograph in 6-8 weeks to document resolution. Signed by: Ginna Vides MD on 11/11/2018 10:11 AM
[2018-11-11 10:38] LABS: INR 0.95; PROTHROMBIN TIME 13.2 seconds (11.9-14.5)
[2018-11-11 10:39] LABS: PARTIAL THROMBOPLASTIN TIME 30.5 seconds (23.8-35.5)
[2018-11-11] MEDS ORDERED: CEFEPIME HCL 2 GM VIAL IV SCH (11:00)
[2018-11-11] MEDS ORDERED: DIPHENHYDRAMINE HCL INJ 50 MG/ML VIAL IV PRN (11:15)
[2018-11-11] MEDS ORDERED: ZOLPIDEM TARTRATE 5 MG TAB PO PRN (11:15)
[2018-11-11] MEDS ORDERED: ENALAPRILAT IV INJ 1.25 MG/ML VIAL IV PRN (11:15)
[2018-11-11] MEDS ORDERED: ACETAMINOPHEN 325 MG TAB PO PRN (11:15)
[2018-11-11] MEDS ORDERED: MORPHINE SULFATE INJ 4 MG/ML INJ 1ML IV PRN (11:15)
[2018-11-11] MEDS ORDERED: LACTULOSE SYRUP 20 GM/30 ML UDC PO PRN (11:15)
[2018-11-11] MEDS ORDERED: ONDANSETRON HCL INJ 2MG/ML 2ML 2 MG/ML VIAL IV PRN (11:15)
--- OUTSIDE RECORDS SUMMARY | 2018-11-11 11:26 | XMS REPORT | Clinical Summary ---
Author Author [facility] Address Unknown Phone Unavailable Care Team Providers Care Pet Nutrition Specialist Name Role Phone Nicolas Baxter PCP Allergies [...] Lot Implanted Type Area Manufactur er 11/24/2017 [id number] / [id number] / Device Clsr Angio-Seal Vip 6fr Cardiovasc N/A: Coronary ST YOBANI [id number] - [id number] ulid MED:CARDIA Implanted: Qty: 1 on 02/25/2017 by Jem Medina MD [id number] 12/08/2017 [id number] / / [id number] Synergy Stents-Cor N/A: Coronary [place] Implanted: Qty: 1 on 02/25/2017 by Jem Felix MD Results Not on fileafter 11/10/2017 Insurance Payer Benefit Subscriber ID Type Phone Address Plan / Group HUMANA - MEDICARE MGD HUMANA xxxxxxxxx [facility] MEDICARE Contracted ADV Kevon Goldsmith Claude Personal/F Self 1940 [phone] (Home) [place] [address] Advance Directives For more information, please contact: [facility] [address] [place] [address] Date Inactivated Comments Code Status Date Activated 02/26/2017 2:00 PM Full Code 02/24/2017 9:48 PM This code status was determined by: Patient
--- OUTSIDE RECORDS SUMMARY | 2018-11-11 11:26 | XMS REPORT | Clinical Summary ---
Author Author [facility] Address Unknown Phone Unavailable Care Team Providers Care Vat Overhauler Name Role Phone Asked, No Pcp PCP [...] the hips. Bowel gas pattern is unremarkable. *[facility]-[id number] Procedure Note Hm Interface, Radiology Results Incoming [...] the hips. Bowel gas pattern is unremarkable. *[facility]-[id number] Performing Organization Address City/State/Zipcode Phone Number [facility] [address] [place] [address] after 11/10/2017 Insurance Type Payer Benefit Subscriber ID Effective Phone Address Plan / Dates Group PPO HUMANA MEDICARE HUMANA xxxxxxxxx 2017-P MEDICARE resent PPO/PFFS/[facility] Advance Directives Patient has advance care planning documents on file. For more information, beverley e contact: Alexander Vincent [address] [place] [address]
[2018-11-11] MEDS: AZITHROMYCIN 500MG/NS 250 ML 250 ML IV SCH (11:31)
[2018-11-11] MEDS ORDERED: IPRATROPIUM BROMIDE 0.02% 2.5 ML NEB NEB SCH (12:00)
[2018-11-11] MEDS ORDERED: ALBUTEROL SULF 0.083% NEB SOLN 3 ML NEB NEB SCH (12:00)
[2018-11-11] MEDS ORDERED: DEXTROSE 50% SYRINGE 50 ML IV PRN (12:45)
[2018-11-11 13:10] VITALS: BP 168/89
--- NOTE | 2018-11-11 13:10 | NUR ---
RECEIVED PATIENT FROM ER TO ROOM 287. PATIENT IS IN STABLE CONDITION. IV LINE PATENT, SALINE FLUSHED. PATIENT ORIENTED TO ROOM AND POLICIES. ADMISSION HISTORY AND INITIAL ASSESSMENT COMPLETED AND DOCUMENTED. CALL LIGHT WITHIN REACH. BED IN THE LOWEST POSITION.
[2018-11-11] MEDS ORDERED: FLOMAX0.4 MG PO (13:37)
[2018-11-11 13:42] VITALS: BP 168/89
[2018-11-11] MEDS ORDERED: CELEBREX100 MG PO (13:44)
[2018-11-11] MEDS: ALBUTEROL/IPRATROPIUM 3 ML NEB INH SCH ×2 (15:07→19:10)
[2018-11-11 15:23] VITALS: BP 137/69
[2018-11-11] MEDS: INSULIN LISPRO 100 UNIT/1 ML 3ML VIAL SQ SCH ×2 (16:30→21:00)
[2018-11-11] MEDS: FAMOTIDINE 20 MG/2 ML VIAL IV SCH (17:00)
--- NOTE | 2018-11-11 17:55 | NUR ---
DR. GARCIA ROUNDING ON PATIENT, NOTIFIED OF PATIENT REFUSING INSULIN, NO NEW ORDERS RECEIVED.
--- NOTE | 2018-11-11 17:58 | NUR ---
PER MD, CONTINUE ALL HOME MEDICATIONS.
[2018-11-11] MEDS ORDERED: NITROGLYCERIN 0.4 MG SUBL SL PRN (18:00)
[2018-11-11] MEDS ORDERED: CELECOXIB 100 MG CAP PO PRN (18:00)
[2018-11-11] MEDS ORDERED: METFORMIN HCL 500 MG TAB PO SCH (18:15)
[2018-11-11] MEDS ORDERED: METOPROLOL TARTRATE 25 MG TAB PO SCH (18:30)
--- NOTE | 2018-11-11 19:37 | NUR ---
REPORT GIVEN TO ONCOMING NURSE, WALKING ROUNDS DONE. PATIENT IS RESTING IN BED. NO S/S OF DISTRESS NOTED. FAMILY AT BEDSIDE. CALL LIGHT WITHIN REACH. BED IN THE LOWEST POSITION.
[2018-11-11 20:00] VITALS: BP 136/85
--- NOTE | 2018-11-11 20:16 | NUR ---
RECEIVED PT IN BED AOX3 .RESPIRATIONS ARE EVEN AND UNLABORED .RT FA 20G S/L .CALL LIGHT WITH IN REACH .CONTINUE TO MONITOR
[2018-11-11] MEDS: FINASTERIDE 5 MG TAB PO SCH (21:34)
[2018-11-11] MEDS: TAMSULOSIN HCL 0.4 MG CAP PO SCH (21:34)
[2018-11-11] MEDS: SIMVASTATIN 40 MG TAB PO SCH (21:35)
[2018-11-11] MEDS: EZETIMIBE 10 MG TAB PO SCH (21:35)
[2018-11-11] MEDS ORDERED: SODIUM CHLORIDE 0.9% 250ML 250 ML ONE (22:24)
[2018-11-11] MEDS: CEFEPIME 2 GM/NS 0.9% 100 ML 100 ML IV SCH (22:31)
[2018-11-12] VITALS (8 sets, daily range): BP systolic 135–162; BP diastolic 78–89
[2018-11-12] MEDS: ALBUTEROL/IPRATROPIUM 3 ML NEB INH SCH ×4 (01:12→19:30)
[2018-11-12 05:58] LABS: BASOPHILS # (AUTO) 0.1 (0.0-0.1); BASOPHILS % 0.7 % (0.0-1.0); EOSINOPHILS # (AUTO) 0.1 (0.0-0.4); EOSINOPHILS % 1.1 % (0.0-6.0); HEMATOCRIT 39.4 % (38.2-49.6); HEMOGLOBIN 13.2 g/dL (14.0-18.0); LYMPHOCYTES # (AUTO) 1.4 (1.0-3.2); LYMPHOCYTES % 15.7 % (18.0-39.1); MEAN CORPUSCULAR HEMOGLOBIN 30.6 pg (28-32); MEAN CORPUSCULAR HGB CONC 33.5 g/dL (31-35); MEAN CORPUSCULAR VOLUME 91.4 fL (81-99); MONOCYTES % 10.9 % (4.4-11.3); NEUTROPHILS # (AUTO) 6.5 (2.1-6.9); PLATELET COUNT 177 x10e3/uL (140-360); RED BLOOD COUNT 4.31 x10e6/uL (4.3-5.7); RED CELL DISTRIBUTION WIDTH 12.7 % (11.7-14.4)
--- NOTE | 2018-11-12 06:12 | NUR ---
PT RESTED DURING THE NIGHT .DENIES PAIN CALL LIGHT WITH IN REACH CONTINUE TO MONITOR
[2018-11-12 06:18] LABS: ANION GAP 13.4 mmol/L (8-16); BLOOD UREA NITROGEN 16 mg/dL (7-26); BUN/CREATININE RATIO 18 (6-25); CALCIUM 9.5 mg/dL (8.4-10.2); CARBON DIOXIDE 25 mmol/L (22-29); CHLORIDE 106 mmol/L (98-107); CREATININE, SERUM 0.89 mg/dL (0.72-1.25); EST GLOMERULAR FILTRATION RATE > 60 ML/MIN (60-); GLUCOSE 113 mg/dL (74-118); POTASSIUM 4.4 mmol/L (3.5-5.1); SODIUM 140 mmol/L (136-145)
--- NOTE | 2018-11-12 07:00 | NUR ---
RECEIVED AM REPORT FROM RN, MORNING ROUNDS DONE. PT IS ALERT, NO S/S OF DISTRESS. CALL LIGHT WITHIN REACH. IV SITE AT RIGHT FA IS ASYMPTOMATIC AND SL. FAMILY MEMBER IS AT THE BEDSIDE.
--- NOTE | 2018-11-12 07:24 | NUR ---
BEDSIDE REPORT GIVEN TO THE ONCOMING NURSE
[2018-11-12] MEDS: INSULIN LISPRO 100 UNIT/1 ML 3ML VIAL SQ SCH ×4 (07:30→21:00)
[2018-11-12] MEDS: GLIPIZIDE 5 MG TAB PO SCH ×2 (07:30→16:30)
[2018-11-12] MEDS: METFORMIN HCL 500 MG TAB PO SCH ×2 (08:11→17:03)
[2018-11-12] MEDS: PANTOPRAZOLE SOD 40 MG TABEC PO SCH (08:11)
[2018-11-12] MEDS: FAMOTIDINE 20 MG/2 ML VIAL IV SCH ×2 (08:11→18:10)
[2018-11-12] MEDS: METOPROLOL TARTRATE 25 MG TAB PO SCH ×2 (08:16→17:03)
[2018-11-12] MEDS: CEFEPIME 2 GM/NS 0.9% 100 ML 100 ML IV SCH ×2 (10:05→22:00)
--- NOTE | 2018-11-12 10:37 | NUR ---
WOUND CARE NURSE INITIAL CONSULTATION. 78 YEAR OLD MALE ADMITTED TO [facility] WITH DX OF COUGH WITH HEMOPTYSIS AND PNEUMONIA. HEAD TO TOE SKIN ASSESSMENT PERFORMED TODAY. PT IS AAOX3, AMBULATORY AND IS ABLE TO REPOSITION SELF. HEAD TO TOE SKIN ASSESSMENT PERFORMED TODAY PT PRESENTS WITH MILD BLANCHABLE REDNESS TO BILATERAL BUTTOCKS. THERE ARE NO OTHER AREAS OF CONCERN NOTED AT THIS TIME. PT EDUCATED ON PRESSURE RELIEF AND INSTRUCTED TO REPOSITION SELF EVERY TWO HOURS AND PRN. PT STATES UNDERSTANDING. LABS: WBC:9.07 GLUCOSE: 112 ALB:3.8 BLOOD CULTURE RESULTS ARE PENDING AT THIS TIME. RECOMMENDATION: TURN PT EVERY TWO HOURS AND PRN PROVIDE PT BILATERAL HEEL PROTECTORS AND PILLOW SUSPENSIONS: PLACE PT ON ALTERNATING LOW AIR LOSS MATTRESS. APPLY ALLEVYN FOAM TO BILATERAL BUTTOCKS, CHANGE DAILY AND MONITOR. THANKS DR. GARCIA FOR THIS CONSULTATION. Addendum: 11/12/18 at 1101 by Yaritza Ace RN Amended: Links added.
[2018-11-12] MEDS: AZITHROMYCIN 500MG/NS 250 ML 250 ML IV SCH (11:49)
[2018-11-12] MEDS: ASPIRIN 81 MG ENTERIC COATED PO SCH (11:49)
[2018-11-12] MEDS: CLOPIDOGREL BISULFATE 75 MG TAB PO SCH (11:50)
[2018-11-12] MEDS: LOSARTAN POTASSIUM 100 MG TAB PO SCH (11:50)
--- NOTE | 2018-11-12 18:08 | NUR ---
PT WAS COMPLAINING THAT THE RIGHT FOREARM IV WAS HURTING. IV SITED APPEARED RED AND PUFFY. WAS ABLE TO START NEW IV IN LEFT FOREARM 22G. PT TOLERATED WELL, IV IS PATENT.
--- NOTE | 2018-11-12 19:30 | NUR ---
RECEIVED PT IN BED AOX3 .NO ACUTE DISTRESS NOTED .RT FA 22G S/L .CALL LIGHT WITH IN REACH .CONTINUE TO MONITOR
[2018-11-12] MEDS: SIMVASTATIN 40 MG TAB PO SCH (20:51)
[2018-11-12] MEDS: EZETIMIBE 10 MG TAB PO SCH (20:51)
[2018-11-12] MEDS: FINASTERIDE 5 MG TAB PO SCH (20:51)
[2018-11-12] MEDS: TAMSULOSIN HCL 0.4 MG CAP PO SCH (20:51)
[2018-11-13] VITALS: BP 149/79
[2018-11-13 04:00] VITALS: BP 157/87
--- NOTE | 2018-11-13 06:48 | Diagnostic Imaging Report ---
A single frontal view of the chest. HISTORY: Follow-up, pneumonia, cough with hemoptysis COMPARISON: Chest radiograph November 11, 2018 DISCUSSION: Portable technique, limits sensitivity of the exam. Soft tissue attenuation partially limits sensitivity of the exam. Tubes/Lines: None Lungs and pleura: A 1.8 cm nodular opacity projects at the periphery of the left lung base. No definite pleural effusion or pneumothorax is identified. Heart and mediastinum: The cardiomediastinal silhouette appears unchanged. Bones and soft tissues: Healed right fifth rib fracture deformity. IMPRESSION: Left lung base nodular opacity, in the setting of hemoptysis, recommend a CT of the chest with contrast for further evaluation. Signed by: Dr. Ho Contreras D.O., M.M.M. on 11/13/2018 6:45 AM
[2018-11-13] MEDS: ALBUTEROL/IPRATROPIUM 3 ML NEB INH SCH ×2 (07:00→13:00)
--- NOTE | 2018-11-13 07:00 | NUR ---
RECEIVED AM REPORT FROM RN, MORNING ROUNDS DONE. PT IS ALERT WATCHING TV. CALL LIGHT WITHIN REACH. NO COMPLAINTS AT THIS TIME. IS AT THE BEDSIDE.
[2018-11-13] MEDS: INSULIN LISPRO 100 UNIT/1 ML 3ML VIAL SQ SCH ×2 (07:30→11:30)
[2018-11-13] MEDS: PANTOPRAZOLE SOD 40 MG TABEC PO SCH (07:31)
[2018-11-13] MEDS: GLIPIZIDE 5 MG TAB PO SCH (07:31)
[2018-11-13 07:38] VITALS: BP 109/74
[2018-11-13 08:50] VITALS: BP 109/74
[2018-11-13] MEDS: FAMOTIDINE 20 MG/2 ML VIAL IV SCH (08:50)
[2018-11-13] MEDS: METFORMIN HCL 500 MG TAB PO SCH (08:50)
[2018-11-13] MEDS: METOPROLOL TARTRATE 25 MG TAB PO SCH (08:50)
[2018-11-13] MEDS: CEFEPIME 2 GM/NS 0.9% 100 ML 100 ML IV SCH (10:05)
[2018-11-13] MEDS: AZITHROMYCIN 500MG/NS 250 ML 250 ML IV SCH (10:53)
[2018-11-13 12:05] VITALS: BP 131/77
[2018-11-13] MEDS: ASPIRIN 81 MG ENTERIC COATED PO SCH (12:26)
[2018-11-13] MEDS: CLOPIDOGREL BISULFATE 75 MG TAB PO SCH (12:26)
[2018-11-13] MEDS: LOSARTAN POTASSIUM 100 MG TAB PO SCH (12:26)
--- NOTE | 2018-11-13 14:42 | Discharge Summary ---
ADMIT DIAGNOSES: 1. Left lower lobe pneumonia. 2. Coronary artery disease (coronary stent placed in February 2017). 3. Hypertensive heart disease. 4. Type 2 diabetes mellitus. 5. Hemoptysis. DISCHARGE DIAGNOSES: 1. Left lower lobe pneumonia, resolving. 2. Left lower lobe pulmonary nodule. 3. Hypertensive heart disease. 4. Type 2 diabetes mellitus. 5. Coronary artery disease (coronary stent placement in February 2017). 6. Hemoptysis, resolved. HOSPITAL COURSE: This is a 78-year-old white man, who was admitted to [facility] with diagnosis of hemoptysis and left lower lobe pneumonia. It was initially felt that the patient's hemoptysis was secondary to pneumonia. On admission, the patient had a chest x-ray performed that revealed patchy opacities in left lung base. The patient's pneumonia improved dramatically during this hospitalization with intravenous antibiotics namely cefepime and azithromycin. On day discharge, the patient had a portable chest x-ray performed that revealed left basilar nodule opacity. The radiologist stated that in the setting of hemoptysis, CT of the chest with contrast should be performed in the near future. The patient, however, stated that he has a severe allergy to intravenous iodine. The patient and family members were told that the patient would need to be premedicated with methylprednisolone and diphenhydramine prior to intravenous contrast administration. The patient would like to be discharged home. The patient states he was feeling much better on day of discharge. The patient was told to stop clopidogrel and Celebrex, but to continue aspirin. The patient and his family were told that it was safe for him to stop clopidogrel since it had been well over a year since he underwent coronary stent placement. CONDITION ON DISCHARGE: Stable. DISCHARGE MEDICATIONS: 1. Levofloxacin 500 mg daily for seven days. 2. Aspirin 81 mg daily. 3. Vytorin 10/40 one every night. 4. Finasteride 5 mg daily. 5. Glipizide 10 mg b.i.d. 6. Losartan 100 mg daily. 7. Metformin 1000 mg b.i.d. 8. Metoprolol tartrate 25 mg b.i.d. 9. Nitroglycerin 0.4 mg one sublingual every 5 minutes p.r.n. chest pain. 10. Pantoprazole 40 mg daily. 11. Tamsulosin 0.4 mg at bedtime. FOLLOWUP INSTRUCTIONS: 1. The patient instructed to follow up with Dr. Baxter, his primary care doctor within 1 week. 2. I informed the patient that within next couple of weeks, he should undergo CT of the chest with intravenous contrast, but obviously he would need to be premedicated prior to this imaging study due to his severe allergy to iodine. MD GLADYS Leonardo/SUSAN /[id number] cc: DO JESÚS Mcintyre
== END 2018-11-13 14:48 | disposition home or self-care (01) | DRG 194 ==
LOC: ER 09:10 → ERHOLD 09:31 → MED/SURG3 12:35
DX: J15.9 Unspecified bacterial pneumonia (principal); R04.2 Hemoptysis; Z91.041 Radiographic dye allergy status; E11.9 Type 2 diabetes mellitus without complications; I25.10 Atherosclerotic heart disease of native coronary artery without angina pectoris; E78.5 Hyperlipidemia, unspecified; Z95.5 Presence of coronary angioplasty implant and graft; I11.9 Hypertensive heart disease without heart failure; R91.8 Other nonspecific abnormal finding of lung field; Z79.82 Long term (current) use of aspirin; Z79.84 Long term (current) use of oral hypoglycemic drugs
CPT/HCPCS: 36415; 71045; 71046; 80048; 80053; 82550; 82553; 82948; 84484; 85025; 85610; 85730; 87040; 93005; 94640; 99284; J0456; J2405; J7050

== ENCOUNTER → 2019-01-03 | Outpatient (CLI) | payer MEDICARE ==
[~2019-01-03] MED LIST: ASPIRIN EC81 MG PO; CELEBREX100 MG PO; CLOPIDOGREL75 MG PO; FINASTERIDE5 MG PO; FLOMAX0.4 MG PO; GLIPIZIDE5 MG PO; LOSARTAN POTAS100 MG PO; METFORMIN HCL500 MG PO; METOPROLOL TART25 MG PO; NITROGLYCERIN0.4 MG SL; PANTOPRAZOLE SO40 MG PO; TAMSULOSIN PO; VYTORIN 10-401 EACH PO
--- NOTE | 2019-01-03 13:17 | Diagnostic Imaging Report ---
EXAMINATION: CHEST 2 VIEWS INDICATION: Pneumonia COMPARISON: Multiple prior chest radiograph most recently of 11/13/2018 FINDINGS: LINES/TUBES:None LUNGS:The lungs are mildly hyperinflated. No focal consolidation or pulmonary edema. Mild bibasilar subsegmental atelectasis. PLEURA:No pleural effusion or pneumothorax. MEDIASTINUM:The cardiomediastinal silhouette appears normal in size and shape. Atherosclerotic calcifications of the thoracic aorta. BONES/SOFT TISSUES:Old fracture of 6th posterior lateral rib. ABDOMEN:No free air under the diaphragm. IMPRESSION: No focal pneumonia or pulmonary edema. Signed by: Ginna Vides MD on 01/03/2019 1:14 PM
== END ==
LOC: RAD 11:58
PROVIDERS: ATTEND Family Medicine
DX: J98.4 Other disorders of lung (principal)
CPT/HCPCS: 71046